=== PATIENT | female | born 1965 | race Caucasian/White ===

== ENCOUNTER 2021-03-02 14:48 | Emergency (ER) | payer OTHER ==
[~2021-03-02] VITALS: Ht 157.5 cm; Wt 51.0 kg
--- NOTE | 2021-03-02 14:50 | NUR ---
PT LINN FROM HOME FOR C/O BANDA & NOSE BLEED. HX OF SAME. PT STATES SHE HAD BOTH NOSTRILS CAUTERIZED IN JANUARY 2020. HX OF UNCONTROLLED HTN. PT STATES SHE HASN'T TAKEN HER BP MEDICATION IN 1 YR B/C THEY MAKE HER FEEL WEIRD. PT CHANGED INTO GOWN. MONITORS IN PLACE. CALL LIGHT WITHIN REACH.
[2021-03-02] MEDS ORDERED: LIDOCAINE 1%-EPI 1:100K, 20ML ONE (15:11)
[2021-03-02] MEDS ORDERED: TRANEXAMIC ACID 100 MG/ML, 10ML ONE (15:12)
[2021-03-02] MEDS ORDERED: NITROGLYCERIN OINT 2%, 1GM TP ONE ×2 (15:12→15:30)
[2021-03-02] MEDS ORDERED: METOPROLOL 1 MG/ML, 5ML ONE (15:12)
[2021-03-02] MEDS ORDERED: SODIUM CHLORIDE 0.9% 1,000ML IVBOLUS ONE (15:30)
[2021-03-02] MEDS ORDERED: METOPROLOL 1 MG/ML, 5ML IVPush PRN (15:30)
[2021-03-02] MEDS ORDERED: LIDOCAINE 1%-EPI 1:100K, 20ML INFIL ONE (15:30)
[2021-03-02] MEDS ORDERED: SODIUM CHLORIDE FLUSH 10ML SYR IVF ONE (15:30)
[2021-03-02] MEDS ORDERED: TRANEXAMIC ACID 100 MG/ML, 10ML TP ONE (15:30)
[2021-03-02 15:36] LABS: BASOPHILS % (AUTO) 1 % (0-1); EOSINOPHILS % (AUTO) 1 % (1-7); LYMPHOCYTES % (AUTO) 33 % (22-44); MEAN CORPUSCULAR HEMOGLOBIN 30.3 pg (27.0-34.8); MEAN CORPUSCULAR HGB CONC 33.4 g/dL (32.4-35.8); MEAN PLATELET VOLUME 7.2 fL (7.4-10.4); MONOCYTES % (AUTO) 6 % (2-9); NEUTROPHILS % (AUTO) 59 % (42-75); PLATELET COUNT 250 x10^3/uL (130-400); RED BLOOD COUNT 4.68 x10^6/uL (3.82-5.3); RED CELL DISTRIBUTION WIDTH 13.4 % (9.6-15.2)
[2021-03-02 15:37] LABS: MD NO
[2021-03-02 15:42] LABS: ALBUMIN 3.2 g/dL (3.4-5.0); ANION GAP 7 mmol/L (5-15); CALCIUM 8.1 mg/dL (8.5-10.1); CHLORIDE 110 mmol/L (98-107)
[2021-03-02 15:46] LABS: INTERNATIONAL NORMALIZED RATIO 1.01 (0.93-1.1); PROTHROMBIN TIME 10.8 Seconds (9.6-11.5)
[2021-03-02 15:47] LABS: ALANINE AMINOTRANSFERASE 33 U/L (12-78); ALKALINE PHOSPHATASE 90 U/L (45-117); BILIRUBIN,TOTAL 0.3 mg/dL (0.2-1.0); CREATININE 0.55 mg/dL (0.55-1.02); TOTAL PROTEIN 6.3 g/dL (6.4-8.2)
--- NOTE | 2021-03-02 15:52 | NUR ---
PT SITTING ON CHAIR CALMLY. PT STATES SHE "FEELS GOOD" NADN. CALL LIGHT WITHIN REACH
[2021-03-02] MEDS ORDERED: ASPI-1026 PO (15:54)
[2021-03-02] MEDS ORDERED: OMEG1CAP23 PO (15:54)
--- NOTE | 2021-03-02 16:01 | NUR ---
report to MARIOLA Epstein
--- NOTE | 2021-03-02 16:36 | NUR ---
ASSUMED CARE OF PT FROM MARIOLA BUI. PT RESTING IN [facility], DR. DOZIER AT BEDSIDE FOR RE-EVALUATION, EARNESTINE AT THIS TIME, DAUGHTER AT BEDSIDE, TORIN.
--- NOTE | 2021-03-02 18:18 | NUR ---
BREAK RN: PT LAYING CALMLY ON GURNEY, COMFORT MEASURES PROVIDED. DAUGHTER AT BS. CALL LIGHT WITHIN REACH. NADN/VSS.
[2021-03-02 18:21] VITALS: BP 112/79
== END 2021-03-02 19:50 | disposition home or self-care (01) ==
LOC: ED 17:49
DX: R04.0 Epistaxis (principal); I10 Essential (primary) hypertension; R00.0 Tachycardia, unspecified
CPT/HCPCS: 30901; 36415; 71045; 80053; 83735; 85025; 85610; 85730; 93005; 96361; 96374; 99285; J7030